=== PATIENT | female | born 1985 | race Caucasian/White ===

== ENCOUNTER 2016-12-19 19:05 | Emergency (ER) | payer MEDICAID ==
[2016-12-19 19:18] VITALS: BP 128/94
--- NOTE | 2016-12-19 19:43 | ERNOTE ---
Psychological HPI - General Chief Complaint: Anxiety Source: Reports: patient Exam Limitations: Reports: no limitations - Immun/Allergies/Home Medications Allergies/Adverse Reactions: Allergies No Known Allergies Allergy (Verified 12/19/16 19:17) Home Medications: HOME MEDICATIONS Cyclobenzaprine HCl [Flexeril] 10 mg PO TID PRN #30 tab 05/02/16 [Last Taken Unknown] Naproxen [Naprosyn] 500 mg PO BID PRN #60 tab 05/02/16 [Last Taken Unknown] buPROPion HCL [Wellbutrin SR, Zyban] 150 mg PO DAILY 05/02/16 [Last Taken Unknown] - History of Present Illness Narrative: Patient has a history of depression and possible bipolar. She has been for ten years and recently has had a lot of conflict in her marriage. Her is accusing her of taking drugs and cheating on him, both of which are not true. It is increasing her anxiety level and she is very upset. She is essentially here to have a urine drug test to prove to him that she is not taking any. Her daughter's best friends mom has been in and out of her hours and she is suspecting her of taking drugs Time Seen by Provider: 12/19/16 19:23 Review of Systems - Review of Systems Constitutional: Absent: recent illness, fever ENT: Absent: sore throat Respiratory: Absent: shortness of breath Cardiology: Absent: chest pain Gastrointestinal/Abdominal: Absent: nausea, vomiting, abdominal pain Genitourinary: Present: no symptoms reported Musculoskeletal: Absent: back pain Neurological: Absent: numbness Psych: Present: emotional problems, other - has had difficulty sleeping, blames it on her husbands snoring - Patient's Past Medical History Patient History - Medical: Anxiety, Depression Patient History - Cardiac/Respiratory: No pertinent hx Patient History - Cancer: No Hx of Cancer Patient History - Surgical Procedures: , T & A Patient History - Other: None LMP (females 10-50): this week - Social History Living Situations: home Abuse History: No History of abuse Psych History: Hx of Anxiety Alcohol Use: none Drug Use: none - Immunizations Immunizations Up to Date: Yes Hx Pneumococcal Vaccination: No History of Influenza Vaccine: No Physical Exam - Physical Exam General Appearance: Present: wd/wn, alert, mild distress, anxious, crying Respiratory: Present: no respiratory distress, normal breath sounds, no accessory muscle use, lungs clear Cardiovascular/Chest: Present: regular rate, rhythm, no murmur Neurological Exam: Present: alert, oriented, normal mood/affect Skin Exam: Present: normal color, warm/dry ED Progress - Results and Orders Patient's Lab Results:: I have reviewed the patient's lab results. - Vital Signs Patient's Vital Signs:: I have reviewed the patient's vital signs. Vital Signs: Vital Signs 12/19/16 19:12 Temperature 36.5 C Pulse Rate 113 H Respiratory 17 Rate Blood Pressure 128/94 O2 Sat by Pulse 97 Oximetry - Progress/Reassessment Chief Complaint: Anxiety Progress Note-Subjective: 12/19/16 20:04 discussed results with patient Departure Clinical Impression: Anxiety - Departure Disposition: Home self-care Condition: Good Additional Instructions: consider counselling Referrals: Feng Doe MD [Primary Care Provider] -
[2016-12-19 19:55] LABS: Cocaine Ur Negative (NEGATIVE); Urine Barbiturate Negative (NEGATIVE); Urine Benzodiazepines Negative (NEGATIVE); Urine Opiates Negative (NEGATIVE); Urine PCP Negative (NEGATIVE); Urine THC Negative (NEGATIVE)
== END 2016-12-19 20:10 | disposition home or self-care (01) ==
LOC: ER 19:05
DX: F41.1 Generalized anxiety disorder (principal)